=== PATIENT | male | born 1985 | race Two or more races ===

== ENCOUNTER 2020-12-11 21:59 | Emergency (ER) | payer OTHER ==
[~2020-12-11] VITALS: Ht 170.2 cm; Wt 74.8 kg
[2020-12-12] MEDS ORDERED: NAPROXEN375 MG PO (00:20)
[2020-12-12] MEDS ORDERED: INTESTINEX680 M2 PO (00:20)
[2020-12-12] MEDS ORDERED: AMOXICILLIN500 M1 PO (00:20)
== END 2020-12-12 00:32 | disposition home or self-care (01) ==
LOC: ER 21:59
DX: S01.121A Laceration with foreign body of right eyelid and periocular area, initial encounter (principal); S50.12XA Contusion of left forearm, initial encounter; W18.09XA Striking against other object with subsequent fall, initial encounter; Y93.89 Activity, other specified; Y92.89 Other specified places as the place of occurrence of the external cause; Y99.8 Other external cause status

== ENCOUNTER 2020-12-19 17:52 | Emergency (ER) | payer OTHER ==
[~2020-12-19] VITALS: Ht 157.5 cm; Wt 826.9 kg
[~2020-12-19 17:52] MED LIST: AMOXICILLIN500 M1 PO; INTESTINEX680 M2 PO; NAPROXEN375 MG PO
== END 2020-12-19 20:09 | disposition home or self-care (01) ==
LOC: ER 17:52
DX: Z48.02 Encounter for removal of sutures (principal)